=== PATIENT | male | born 1940 | race Caucasian/White ===

== ENCOUNTER → 2018-01-14 | Outpatient (CLI) | payer MEDICARE, OTHER ==
[~2018-01-14] MED LIST: ALBU8.5H IH; AMLO-96 PO; BEN20 PO; CHOL200025 PO; CHOL500026 PO; CODE118S5 PO; DOXY-179 PO; DOXY-228 PO; ETAN50DI5 SQ; FLU180SY9 IM; GABA-549 PO; GLUC100026 PO; GUAI120L3 PO; HYDR-385 PO; HYDR10TA3 PO; LEVO750T44 PO; LOPE1TAB55 PO; OMEG-11 PO; OMEP-153 PO; PHEN240S3 PO; PNEI IM; PNEU0.5D3 IM; PRED20TA6 PO; TADA5TAB7 PO; TEL40 PO; TELM1TAB4 PO; TELM80TA PO; TRAZ-156 PO; TRIA15CR40 TP; VALA100059 PO; VARI50KI IM; [UNRECOGNIZED DRUG - CODE] TD
[2018-01-14 16:34] LABS: PLATELET COUNT, AUTOMATED 223 K/uL (150-450)
== END ==
LOC: LAB 16:14
PROVIDERS: ATTEND Nurse Practitioner Family
DX: I10 Essential (primary) hypertension (principal); M06.9 Rheumatoid arthritis, unspecified; Z79.899 Other long term (current) drug therapy
CPT/HCPCS: 36415; 82040; 82247; 82310; 82374; 82435; 82565; 82947; 84075; 84132; 84155; 84295; 84450; 84460; 84520; 85025

== ENCOUNTER → 2018-02-07 | Outpatient (CLI) | payer MEDICARE, OTHER ==
--- NOTE | 2018-02-07 10:16 | RADIOLOGY IMAGING REPORT ---
FACILITY: [facility] [place] PATIENT NAME: Eugene Preciado : 1940 MR: [id number] V: [id number] EXAM DATE: ORDERING PHYSICIAN: ANETTE MEDINA TECHNOLOGIST: Location: [facility] Patient: Eugene Preciado : 1940 Visit/Account:[id number] Date of Sevice: 02/07/2018 DEXA Scan Clinical history: RA, loss of height. Comparison: None available. LUMBAR SPINE: The bone mineral density (BMD) measured from L1-L4 correlates with a Z-score 2.4 and a T-score of 1.8 which is Normal as defined by the World Health Organization. The corresponding risk of fracture in the lumbar spine is Not increased compared with a young adult reference population. HIP: Bone mineral density (BMD) measured in the Left total hip region correlates with a Z-score 0.8 and a T-score of -0.1 which is Normal as defined by the World Health Organization. The corresponding risk of fracture in the hip is Not increased compared with a young adult reference population. T score l eft femoral neck -1.3 Bone mineral density (BMD) measured in the Femoral Neck region measures 0.895 g/cm2. Impression: 1. Lumbar spine: Normal. 2. Left Hip: Normal. 3. Femoral Neck: Bone Mineral Density is 0.895 g/cm2 The next DEXA scan of this patient should include the following sites: L1-L4 and the left hip. FRAX? WHO Fracture Risk Assessment Tool link: <http://www.shef.ac.uk/FRAX/tool.jsp?locationValue=9> PLEASE NOTE: 1) The World Health Organization defines low BMD as follows: T-score Normal > -1 Osteopenia < -1 and > -2.5 Osteoporosis < -2.5 without fractures Established osteoporosis < -2.5 with fractures 2) In general, you may wish to consider: Diagnosis Treatment Follow-up DEXA Normal BMD Prevention 2-3 years Osteopenia Prevention/therapy 1-2 years Osteoporosis Therapy Yearly 3) Fracture risk estimated from the T-score is more accurate for vertebral fractures (often spontane ous) than for hip fractures. Report Dictated By: Josiane Mathur MD at 02/07/2018 10:10 AM Report E-Signed By: Josiane Mathur MD at 02/07/2018 10:11 AM WSN:CAIO
== END ==
LOC: RAD 04:08
PROVIDERS: ATTEND Nurse Practitioner Family
DX: M06.9 Rheumatoid arthritis, unspecified (principal); R29.890 Loss of height; Z92.241 Personal history of systemic steroid therapy
CPT/HCPCS: 77080

== ENCOUNTER 2018-08-08 14:45 | Outpatient (RCR) | payer MEDICARE, OTHER ==
--- NOTE | 2018-07-02 09:10 | PT INITIAL EVALUATION ---
MEDICAL DIAGNOSIS: neck stiffness TREATMENT DIAGNOSIS: same DATE OF ONSET: 05/01/18 SUBJECTIVE: Eugene Preciado presents to physical therapy with cervical tightness/stiffness when he turns to the R or L combined with extension. He denies any pain and states that it feels like tightness or stiffness. He reports that this has been going on for about 2 months and feels like it is getting worse. He reports that his stiffness is worse with turning and rising. He reports that it feels better with lying. He denies any night pain, unexplained weight loss, imaging, or recent surgeries or accidents. 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 REHAB PROBLEM LIST: Decreased ROM Decreased Function Decreased ADL's PREVIOUS MEDICAL HISTORY: See EMR OCCUPATION: Retired OBJECTIVE: Posture: He demonstrates increased forward head, increased thoracic kyphosis, and decreased lumbar lordosis. ROM: Cervical AROM: Protrusion: PDM, NIL, flexion: NIL normal pain feel. retraction: NIL stretch end feel. extension: Moderate restriction, PDM and stretch at end feel. lateral flexion R: NIL with normal end feel. lateral flexion L: NIL with normal end feel. Rotation R: minimal restriction with muscular end feel. Rotation L: NIL with normal end feel. Strength: Palpation: He is not TTP. Sensation: Intact C2-T2 Special Tests: Repeated RET: produces pain; no worse. Repeated RET with self pressure: produces pain, better, increased R rotation. Repeated RET with extension: produces pain, better, increased R rotation. Repeated RET with extension and self pressure: produces pain, better, increased R rotation. Mobility: Independent Gait: Normal gait mechanics ASSESSMENT: Eugene will benefit from skilled physical therapy addressing his listed impairments to improve function and QOL. His provisional classification is posterior derangement that responded well to extension based principles with increased cervical AROM and improved end feels. His prognosis is excellent and should resolve in the next two weeks. Short Term Goals 1 week: Pt will demonstrate directional preference with increased AROM in the cervical spine into R rotation and extension to improve function and QOL. 2 weeks: Pt will demonstrate full cervical AROM in all directions and demonstrate 0/10 stiffness in the cervical spine to improve function and QOL. 3 weeks: Pt will demonstrate full recovery of function and fully educated on prevention. Patient's Goals reduce stiffness and increase range of motion PLAN: Patient to be seen for Manual Therapy/STM/MET Strengthening/condition Range of Motion Spinal Stabilization Work Hardening/Cond Stretching Neuromuscular Re-ed Closed Chain Program Posture/Body mechanics Therapeutic Activities 2x/Week for 3 weeks If you have any questions, comments, or concerns about this report or plan, please contact me at . Thank you, Eliezer Lara, PT, DPT MTDD
[~2018-08-08 14:45] MED LIST changes: +AMLO-111 PO; -AMLO-96 PO; +FLU180SY11 IM; -TELM80TA PO; +TELM80TA4 PO; -TRAZ-156 PO; +TRAZ50TA34 PO
--- NOTE | 2018-08-08 18:26 | PT PLAN OF CARE ---
Physician: BERNADETTE Valenzuela Patient is being seen: 2x/week Therapist: Eliezer Lara, PT, DPT Medical Diagnosis: neck stiffness Treatment Diagnosis: same Date of Onset: 05/01/18 Date of Initial Evaluation: 07/01/18 Date patient was last seen: 08/08/18 Number of treatments: 7 Number of cancellations/No shows: 3 INTERVENTIONS: Manual Therapy/STM/MET Strengthening/condition Range of Motion Spinal Stabilization Work Hardening/Cond Stretching Neuromuscular Re-ed Closed Chain Program Posture/Body mechanics Therapeutic Activities GOALS: 1 week: Pt will demonstrate directional preference with increased AROM in the cervical spine into R rotation and extension to improve function and QOL. 2 weeks: Pt will demonstrate full cervical AROM in all directions and demonstrate 0/10 stiffness in the cervical spine to improve function and QOL. 3 weeks: Pt will demonstrate full recovery of function and fully educated on prevention. PATIENT'S GOAL: reduce stiffness and increase range of motion Status of Patient's Goals: Progressed Patient Compliance: Good Prognosis: Excellent Reasons for continuing therapy: This is a discharge note for Eugene Preciado. He reports that the first two sessions were the most beneficial and improved his neck R rotation and since those sessions he feels like his neck continues to become more painful from 0/10 to 1-2/10 and continues to have the cracking and popping sensation. As a result, he would to manage it with the first exercise that he performed and by discharged from PT. He continues to demonstrate directional preference with RET and peripheralized with all of the other motions. He was educated on how to eliminate and then prevent future reoccurrences if it ever did return. Furthermore, we were unable to change the cracking sensation that is painful and he was educated that if he wanted to know what is causing that he would need to return to his physician for more imaging. As a result, he will be discharged from PT. Posture: He demonstrates increased forward head, increased thoracic kyphosis, and decreased lumbar lordosis. ROM: Cervical AROM: Protrusion: PDM, NIL, flexion: NIL normal pain feel. retraction: NIL stretch end feel. extension: Moderate restriction, PDM and stretch at end feel. lateral flexion R: NIL with normal end feel. lateral flexion L: NIL with normal end feel. Rotation R: minimal restriction with muscular end feel. Rotation L: NIL with normal end feel. Palpation: He is not TTP. Special Tests: Repeated RET: produces pain; no worse. Repeated RET with self pressure: produces pain, better, increased R rotation. Repeated RET with extension: produces pain, better, increased R rotation. Repeated RET with extension and self pressure: produces pain, better, increased R rotation. Mobility: Independent If you have any questions, please contact me at [phone]. Thank you, Eliezer Lara, PT, DPT [facility]
== END 2018-08-08 18:00 | disposition home or self-care (01) ==
LOC: PT 14:45
PROVIDERS: ATTEND Nurse Practitioner Family
DX: M43.6 Torticollis (principal)
CPT/HCPCS: 97161

== ENCOUNTER → 2019-01-21 | Outpatient (CLI) | payer MEDICARE, OTHER ==
[~2019-01-21] MED LIST changes: -AMLO-111 PO; +AMLO-125 PO; +SULF-198 PO
== END ==
LOC: LAB 09:35
PROVIDERS: ATTEND Nurse Practitioner Family
DX: L02.411 Cutaneous abscess of right axilla (principal)
CPT/HCPCS: 87070